=== PATIENT | male | born 1990 | race Hispanic/Latino ===

== ENCOUNTER 2018-07-23 16:27 | Observation (INO) | payer BC ==
[2018-07-23] MEDS ORDERED: Morphine 4 MG/ML VIAL IV STA (16:53)
[2018-07-23] MEDS ORDERED: Morphine 4 MG/ML VIAL ONE (16:54)
--- NOTE | 2018-07-23 17:47 | ED PDOC ---
Upper Extremity Pain/Injury Time Seen by Provider: 07/23/18 16:49 Chief Complaint (Nursing): Finger,Hand,&Wrist Chief Complaint (Provider): left hand pain History Per: Patient History/Exam Limitations: no limitations Onset/Duration Of Symptoms: Sudden Onset Current Symptoms Are (Timing): Still Present Quality: Sharp Severity: Severe Exacerbating Factor(s): Strenuous Use Of Affected Area, Movement Additional Complaint(s): 28yo male c/o left hand pain s/p punching door, notes pain to lateral hand and 3 /4/5 digits, unable to actively move them. Denies elbow, wrist or shoulder pain. Denies head or neck trauma. Notes some tingling to the 4/5 digits. Past Medical History Reviewed: Historical Data, Nursing Documentation, Vital Signs Vital Signs: Last Vital Signs Temp 98.1 F 07/23/18 16:45 Pulse 94 H 07/23/18 16:45 Resp 18 07/23/18 16:45 BP 136/93 H 07/23/18 16:45 Pulse Ox 99 07/23/18 16:45 - Medical History PMH: No Chronic Diseases - Surgical History Surgical History: Appendectomy - Family History Family History: States: Unknown Family Hx - Living Arrangements Living Arrangements: With Family - Home Medications Home Medications: Ambulatory Orders Medication Instructions Recorded No Known Home Med 07/23/18 - Allergies Allergies/Adverse Reactions: Allergies Allergy/AdvReac Type Severity Reaction Status Date / Time No Known Allergies Allergy Verified 07/23/18 16:45 Review of Systems ROS Statement: Except As Marked, All Systems Reviewed And Found Negative Constitutional: Negative for: Fever Cardiovascular: Negative for: Chest Pain Respiratory: Negative for: Shortness of Breath Gastrointestinal: Negative for: Abdominal Pain Musculoskeletal: Positive for: Arm Pain, Hand Pain. Negative for: Neck Pain, Shoulder Pain, Back Pain, Leg Pain, Foot Pain Skin: Negative for: Rash, Lesions, Jaundice Neurological: Positive for: Numbness. Negative for: Weakness Physical Exam - Reviewed Nursing Documentation Reviewed: Yes Vital Signs Reviewed: Yes - Physical Exam Appears: Positive for: Uncomfortable (painful distress) Skin: Positive for: Normal Color, Warm Eye Exam: Positive for: Normal appearance, EOMI, PERRL Neck: Positive for: Painless ROM Respiratory: Negative for: Respiratory Distress Extremity: Positive for: Tenderness, Swelling, Other (L hand +tender ulnar side w/ edema, tenderness and loss ROM 3/4 digits, ring to L ring finger w dried blood underneath) - Laboratory Results Result Diagrams: 07/23/18 18:01 07/23/18 18:01 - ECG O2 Sat by Pulse Oximetry: 99 Medical Decision Making Medical Decision Making: pain medicine initiated xrays reveal comminuted displaced distal 3/4 metacarpal fractures. Hand surgery contacted, will come to ED to reduce and possible OR Last PO at 3pm Remain NPO Dr Coffman in ED approx 630pm, he provided digital block and reduced fractures and placed in splint. I assisted with removing ring with ring cutter. Per hand surgery no need for post reduction XRays and fractures are unstable and will require OR in am. Patient remains in pain, admit med surg Obs for pain control, neurovascular checks and OR in am Disposition - Clinical Impression Clinical Impression: Multiple hand fractures - Patient ED Disposition Is Patient to be Admitted: Yes - Disposition Disposition Time: 18:30 Condition: STABLE - POA Present On Arrival: Falls Or Trauma
[2018-07-23 18:04] LABS: BASO % 0.8 % (0.0-2.0); EOS # 0.1 K/uL (0.0-0.7); EOS % 2.1 % (0.0-4.0); HEMOGLOBIN 15.1 g/dL (12.0-18.0); LYMPH # 1.2 K/uL (1.0-4.3); LYMPH % 26.9 % (20.0-40.0); MEAN CELL VOLUME 86.1 fl (80.0-94.0); MEAN CORPUSCULAR HEMOGLOBIN 28.5 pg (27.0-31.0); MEAN CORPUSCULAR HGB CONC 33.2 g/dL (33.0-37.0); MEAN PLATELET VOLUME 8.7 fl (7.2-11.7); MONO # 0.5 K/uL (0.0-0.8); MONO % 10.6 % (0.0-10.0); NEUT # 2.7 K/uL (1.8-7.0); NEUT % 59.6 % (50.0-75.0); NRBC % 0.1 % (0.0-0.0); RBC 5.28 Mil/uL (4.40-5.90); RED CELL DISTRIBUTION WIDTH 13.7 % (11.5-14.5); WHITE BLOOD COUNT 4.6 K/uL (4.8-10.8)
[2018-07-23 18:12] LABS: ALB/GLOB RATIO 1.6 (1.0-2.1); ALBUMIN 4.7 g/dL (3.5-5.0); ALT/SGPT 42 U/L (21-72); AST/SGOT 36 U/L (17-59); BLOOD UREA NITROGEN 15 mg/dl (9-20); CALCIUM 9.8 mg/dL (8.4-10.2); GFR NON-AFRICAN AMERICAN > 60; INR 1.1
[2018-07-23 18:14] LABS: PARTIAL THROMBOPLASTIN TIME 28.3 Seconds (25.6-37.1)
[2018-07-23] MEDS ORDERED: Lidocaine 2% Inj (20ml) IJ ONE (19:02)
[2018-07-23] MEDS ORDERED: Lidocaine PF 2% (5 ml) Inj (For Cardiac Arrhy) ONE (19:04)
--- NOTE | 2018-07-23 20:05 | CP.PCM.HP ---
History of Present Illness - History of Present Illness History of Present Illness: Hand Surgery - Dr. Coffman 28yo M presenting with L hand pain s/p punching wooden door. Pt states that he punched a door and immediately noted severe pain and deformity to his Left hand , mostly in the lateral hand and 4/5 digits. He was unable to move them actively and notes some numbness/paresthesias to the 4/5 digits. Pt denies any other injuries. He denied any wrist, elbow or shoulder pain. PMH: denies any PSH: Lap appendectomy, Right hand repair s/p dog bite NKDA Soc: Smokes Marijuana, Quit smoking cigarettes 3 days ago, Social ETOH Pt was seen in the ED. S/P reduction and splint by Dr. Coffman. Will be admitted and plan for OR tomorrow for closed and possible open reduction and pinning of the Left 4/5 metacarpals. Present on Admission - Present on Admission Any Indicators Present on Admission: No Review of Systems - Review of Systems All systems: reviewed and no additional remarkable complaints except (as per HPI ) Past Patient History - Past Social History Smoking Status: Former Smoker Alcohol: Social Drugs: Cannabis - PSYCHIATRIC Hx Substance Use: No - SURGICAL HISTORY Hx Appendectomy: Yes Meds Allergies/Adverse Reactions: Allergies Allergy/AdvReac Type Severity Reaction Status Date / Time No Known Allergies Allergy Verified 07/23/18 16:45 Physical Exam - Constitutional Appears: No Acute Distress - Head Exam Head Exam: ATRAUMATIC, NORMAL INSPECTION, NORMOCEPHALIC - Eye Exam Eye Exam: Normal appearance - ENT Exam ENT Exam: Mucous Membranes Moist - Respiratory Exam Respiratory Exam: NORMAL BREATHING PATTERN. absent: Respiratory Distress - Cardiovascular Exam Cardiovascular Exam: REGULAR RHYTHM - Extremities Exam Additional comments: Left hand in full splint - Neurological Exam Neurological exam: Alert, Oriented x3 - Psychiatric Exam Psychiatric exam: Normal Affect, Normal Mood - Skin Skin Exam: Dry, Intact Results - Vital Signs Recent Vital Signs: Last Vital Signs Temp 98.1 F 07/23/18 16:45 Pulse 94 H 07/23/18 16:45 Resp 18 07/23/18 16:45 BP 136/93 H 07/23/18 16:45 Pulse Ox 99 07/23/18 19:50 - Labs Result Diagrams: 07/23/18 18:01 07/23/18 18:01 Labs: Laboratory Results - last 24 hr 07/23/18 07/23/18 07/23/18 18:01 18:01 18:01 WBC 4.6 L RBC 5.28 Hgb 15.1 Hct 45.4 MCV 86.1 MCH 28.5 MCHC 33.2 RDW 13.7 Plt Count 192 MPV 8.7 Neut % (Auto) 59.6 Lymph % (Auto) 26.9 [place] % (Auto) 10.6 H Eos % (Auto) 2.1 Baso % (Auto) 0.8 Neut # (Auto) 2.7 Lymph # (Auto) 1.2 [place] # (Auto) 0.5 Eos # (Auto) 0.1 Baso # (Auto) 0.0 PT 12.0 INR 1.1 APTT 28.3 Sodium 141 Potassium 3.9 Chloride 106 Carbon Dioxide 23 Anion Gap 16 BUN 15 Creatinine 1.0 Est GFR ( Amer) > 60 Est GFR (Non-Af Amer) > 60 Random Glucose 98 Calcium 9.8 Total Bilirubin 0.7 AST 36 ALT 42 Alkaline Phosphatase 49 Total Protein 7.7 Albumin 4.7 Globulin 2.9 Albumin/Globulin Ratio 1.6 Assessment & Plan - Assessment and Plan (Free Text) Assessment: 28yo M w/ Open, comminuted displaced fxs of Left 4th/5th Metacarpals -Admitted under Dr. Coffman -NPO after midnight -IVF -Pain control prn -Plan for OR tomorrow (07/24) DW Dr. Augustus Herrera PGY4
[2018-07-23] MEDS: Lactated Ringer's 1,000 ML IV SCH (20:14)
[2018-07-24] MEDS: Lactated Ringer's 1,000 ML IV SCH ×3 (03:34→14:45)
--- NOTE | 2018-07-24 08:25 | RAD ---
Date of service: 07/23/2018 PROCEDURE: Left Wrist Radiographs. HISTORY: hand wrist trauma punched door COMPARISON: None. FINDINGS: BONES: No acute fracture or destructive bony lesion identified, including the navicular bone. JOINTS: Normal. No dislocation. SOFT TISSUES: Normal. OTHER FINDINGS: None. IMPRESSION: Unremarkable left wrist radiographs.
--- NOTE | 2018-07-24 08:33 | RAD ---
PROCEDURE: Left Hand Radiographs. HISTORY: punched wall COMPARISON: None. FINDINGS: BONES: Patchy comminuted fractures of distal 4th and 5th metacarpal diaphyses are identified with volar angulation of the major fracture fragments. No dislocation apparent. A ring at the proximal phalanx level of the left ring finger obscures evaluation of the ring finger with the remaining digits unremarkable in appearance as well as the 1st through 3rd metacarpal bones. Local soft tissues reflect edema at the fracture sites of the 4th and 5th metacarpal bones. JOINTS: As above. SOFT TISSUES: As above. OTHER FINDINGS: None. IMPRESSION: Right 4th and 5th metacarpal bone boxer's fractures as discussed above. No dislocation.
[2018-07-24] MEDS ORDERED: Pneumococcal 23-Valent Vaccine IM ONE (10:00)
[2018-07-24] MEDS ORDERED: ceFAZolin IV 1 gm in Dextrose 1 GM/50 ML BAG IVPB ONE ×2 (13:17→14:13)
[2018-07-24] MEDS ORDERED: Propofol 10 mg/ml Inj (20 ML) ONE (13:47)
[2018-07-24] MEDS ORDERED: Phenylephrine 10 mg/ml Inj ONE (14:14)
[2018-07-24] MEDS ORDERED: Bupivacaine 0.5% Inj(30mL) IJ ONE (14:30)
--- NOTE | 2018-07-24 14:46 | PCM.SURG1 ---
Surgeon's Initial Post Op Note - Surgeon's Notes Surgeon: Dr. Irasema Coffman General Car Yard Supervisor: Sophia Lynch, PGY-2 Type of Anesthesia: General LMA Anesthesia Administered By: Dr. Sainz Pre-Operative Diagnosis: Communited fracture of 4th and 5th metacarpals of left hand Operative Findings: See op report Post-Operative Diagnosis: Communited fracture of 4th and 5th metacarpals of left hand Operation Performed: Closed reduction of Communited fracture of 4th and 5th metacarpals of left hand with pin placement Specimen/Specimens Removed: None Estimated Blood Loss: EBL {In ML}: 2 Blood Products Given: N/A Drains Used: No Drains Post-Op Condition: Good Date of Surgery/Procedure: 07/24/18 Time of Surgery/Procedure: 14:46
--- NOTE | 2018-07-24 14:51 | CP.PCM.PN ---
Subjective - Date & Time of Evaluation Date of Evaluation: 07/24/18 Time of Evaluation: 14:49 - Subjective Subjective: Plastic surgery progress note for Dr. Coffman-Sophia Lynch, PGY-2 Pt admitted to plastic surgery service yesterday after 4th and 5th metacarpals communited fracture of left hand was identified. Pt taken to OR, s/p closed reduction of 4th and 5th metacarpals of left hand, doing well post op. Pt cleared to d/c home later today after recovering from anesthesia as per Dr. Coffman. Scripts called into pharmacy to be picked up by patient. Ok to resume normal diet. Objective - Vital Signs/Intake and Output Vital Signs (last 24 hours): Temp Pulse Resp BP Pulse Ox 97.5 F L 62 19 118/75 97 07/24/18 09:00 07/24/18 09:00 07/24/18 09:00 07/24/18 09:00 07/24/18 09:00 - Medications Medications: Current Medications Hydromorphone HCl (Dilaudid) 0.5 mg IVP Q3 PRN PRN Reason: breakthrough pain Stop: 07/26/18 11:23 Last Admin: 07/24/18 11:44 Dose: 0.5 mg Hydromorphone HCl (Dilaudid) 1 mg IVP Q3H PRN PRN Reason: Pain, severe (8-10) Last Admin: 07/24/18 13:12 Dose: 1 mg Lactated Ringer's (Lactated Ringer's) 1,000 mls @ 125 mls/hr IV .Q8H JACQUELIN Last Admin: 07/24/18 11:44 Dose: 125 mls/hr Tramadol HCl (Ultram) 50 mg PO Q6 PRN PRN Reason: Pain, moderate (4-7) - Labs Labs: 07/23/18 18:01 07/23/18 18:01 PT 12.0 Seconds (9.8-13.1) 07/23/18 18:01 INR 1.1 07/23/18 18:01 APTT 28.3 Seconds (25.6-37.1) 07/23/18 18:01 - Constitutional Appears: Non-toxic, No Acute Distress - Head Exam Head Exam: ATRAUMATIC, NORMAL INSPECTION, NORMOCEPHALIC - Eye Exam Eye Exam: EOMI, Normal appearance - ENT Exam ENT Exam: Mucous Membranes Moist, Normal Exam - Neck Exam Neck Exam: Full ROM, Normal Inspection - Respiratory Exam Respiratory Exam: NORMAL BREATHING PATTERN - Cardiovascular Exam Cardiovascular Exam: REGULAR RHYTHM, +S1, +S2 - GI/Abdominal Exam GI & Abdominal Exam: Soft. absent: Tenderness - Extremities Exam Extremities Exam: absent: Normal Inspection Additional comments: left hand with cast in place- clean/dry/intact - Psychiatric Exam Psychiatric exam: Normal Affect, Normal Mood - Skin Skin Exam: Dry, Intact, Normal Color, Warm
[2018-07-24 16:13] VITALS: O2SAT 98
[2018-07-24 16:39] VITALS: BP 116/67; PULSE 71; RESP 20; TEMP 97.9
--- NOTE | 2018-07-27 02:45 | CON ---
Copied To: Irasema Coffman MD Attending MD: Irasema Coffman MD DATE: 07/23/2018 ER CONSULTATION. SURGEON: Irasema Coffman MD HISTORY OF PRESENT ILLNESS: This is a 28-year-old male with the past surgical history of a dislocated right thumb, that required operative reduction, who is right hand dominant, who punched the door, and he presented to the emergency room with the deformity of his left hand. X-ray done by the ER staff showed left fourth or ring finger metacarpal head, intraarticular comminuted fracture, as well as a left small finger angulated displaced metacarpal neck fracture that was about 90 degrees displaced and ER staff consulted me for these acute fractures. I came in as the hand surgeon environmental web crawler. PHYSICAL EXAMINATION: GENERAL: The patient had tenderness and swelling of the left ring and small finger at the MCP joint. There is an obvious deformity of the hand. He had some scissoring and angulation with fist making. The phalanx bones in all fingers and other metacarpal bones and the carpal bones of the wrist and the distal radius were not tender. I reviewed the x-ray which showed a comminuted intraarticular fracture of the left fourth metacarpal head and a displaced left small finger metacarpal neck fracture at 90 degrees displaced. He was neurovascularly intact, except for some paresthesia secondary to swelling and good cap refill. I told the patient because he has acute dislocations, I would give him a hematoma block and perform a closed reduction, but warned the patient that this is an inherently unstable fracture and if there was moving at the end of the closed reduction, he would need to go to the operating room for pin stabilization. He understood this and wished to proceed. I will now dictate a separate operative report. Irasema Coffman MD
--- NOTE | 2018-07-27 02:57 | OP ---
Copied To: Irasema Coffman MD Attending MD: Irasema Coffman MD PROCEDURE DATE: 07/23/2018 SURGEON: Irasema Coffman MD PREOPERATIVE DIAGNOSES: 1. Left ring finger metacarpal head intraarticular comminuted fracture. 2. Left small finger metacarpal neck displaced fracture. POSTOPERATIVE DIAGNOSES: 1. Left ring finger metacarpal head intraarticular comminuted fracture. 2. Left small finger metacarpal neck displaced fracture. PROCEDURE PERFORMED: As follows: 1. Closed reduction with manipulation of left ring finger metacarpal fracture. 2. Closed reduction with manipulation of left small finger metacarpal fracture. 3. Removal of foreign body; a ring from left ring finger. ANESTHESIA: Hematoma block to left ring finger and left small finger as well as left ring finger radial and ulnar digital. nerve block. INDICATIONS FOR PROCEDURE: As follows: Please refer to my separately dictated ER consultation for history and physical. I also forgot to mention the patient had a ring on, which we could not get off. I told him we would have to cut it off to which he agreed after regional anesthesia. DESCRIPTION OF PROCEDURE: As follows: A 0.5% Marcaine mixed with 1% lidocaine was used on the left ring finger and small finger metacarpal, hematoma block in the fracture sites of the metacarpal head and neck of the ring and small fingers, as well as a radial and ulnar digital nerve block to the left ring finger. After allowing sufficient time for the anesthetic to take effect, we attempted to remove the patient's ring from his left ring finger without cutting it. We were unsuccessful, we then used a pin cutter for the emergency room doctor and I, and we were able to successfully remove it. I then performed a closed reduction with manipulation of the left ring and small finger metacarpal fracture by performing a Jahss maneuver to reduce the fractures by flexing the MCP joints and pulling on the fingers. After doing this, there was a palpable click; however, the bones were unstable, there was no longer any scissoring or fist making, so I fabricated, secured a volar splint with the left wrist extended to 20 degrees, MCP flexed to 60 degrees, IP at 0 degrees before the splint hardened. I explained to the patient and his that these are unstable fractures and he would benefit from going to the operating room for pin stabilization. Since the patient ate recently and it would be in the middle of the night, he was admitted to the hospital to go to the operating room the following day. Irasema Coffman MD
--- NOTE | 2018-07-27 03:08 | OP ---
Copied To: Irasema Coffman MD Attending MD: Irasema Coffman MD PROCEDURE DATE: 07/24/2018 SURGEON: Irasema Coffman MD OIL BOILER SURGEON: Sophia Lynch DO ANESTHESIOLOGIST: Kalin Sainz MD ANESTHESIA: General anesthesia with LMA as well as hematoma block to the left fourth and fifth metacarpal fractures. PREOPERATIVE DIAGNOSES: 1. Left ring finger metacarpal head fracture. 2. Left small finger metacarpal neck fracture. POSTOPERATIVE DIAGNOSES: 1. Left ring finger metacarpal head fracture. 2. Left small finger metacarpal neck fracture. PROCEDURE PERFORMED: As follows: 1. Closed reduction with manipulation and percutaneous pinning of the left ring finger metacarpal fracture. 2. Closed reduction with manipulation and percutaneous pinning of the left small finger metacarpal neck fracture. INDICATIONS FOR PROCEDURES: As follows: This is a 28-year-old male who I performed a closed reduction in the emergency room last night after he punched a wall and he sustained deformity and fractures of the left fourth and fifth metacarpal fractures. The fractures were unstable. After reduction, the patient stayed overnight. Since he ate recently, he is going to the operating room today. I explained to the patient the possible risk of the operation including but not limited to infection, arthritis, nonunion, malunion, stiffness, need to keep the splint on for a month, the need for therapy, and possible need for subsequent surgery and stiffness. He understood this and wished to proceed. DESCRIPTION OF PROCEDURE: As follows: The patient was taken to the operating room, placed under general anesthesia with an LMA. Perioperative antibiotics were given. SCDs were placed on bilateral lower extremities. Left upper extremity was prepped and draped in usual clean and sterile manner. With the use of mini C-arm and mini fluoroscopy, I performed a closed reduction with manipulation of the left ring and small finger metacarpal fractures. After aligning the bones, I placed a 0.45 K-wire in a retrograde manner from the metacarpal head, crossing to the fracture site of the left small finger, going into the hamate bone. I placed the second pin parallel to this into the hamate bone. I did the same exact thing on the left ring finger from the metacarpal head into the capitate bone. After doing this on AP, oblique, lateral, and PA views, there was excellent alignment of both fractures and there was no scissoring or angulation or any shortening with fist making. There was normal cascade to the fingers. X-rays were taken. Pins were bent, shortened, and capped. Xeroform dry sterile dressing was placed. An 0.5% Marcaine was placed in hematoma block for postop analgesia. A volar splint was fabricated, secured into position and comfort. Once the splint hardened, the patient awakened from anesthesia, and was transferred to recovery room in stable condition. FINDINGS: As above. DRAINS: A 0.45 K-wire x2 left small finger; 0.45 K-wire x1 left ring finger. ESTIMATED BLOOD LOSS: Minimal. COMPLICATIONS: None. CONDITION: Stable. Irasema Coffman MD
== END 2018-07-24 17:30 | disposition home or self-care (01) ==
LOC: H.ER 16:27 → H.ERHOLD 19:28 → H.MEDSURG1 21:25
PROVIDERS: ADMIT Surgery; ATTEND Surgery
DX: S62.303A Unspecified fracture of third metacarpal bone, left hand, initial encounter for closed fracture (principal); S62.305A Unspecified fracture of fourth metacarpal bone, left hand, initial encounter for closed fracture; W22.09XA Striking against other stationary object, initial encounter; Y93.89 Activity, other specified; Y92.9 Unspecified place or not applicable; F12.90 Cannabis use, unspecified, uncomplicated; Z87.891 Personal history of nicotine dependence; Z90.49 Acquired absence of other specified parts of digestive tract; Z23 Encounter for immunization
CPT/HCPCS: 26615; 73110; 73130; 80053; 85025; 85610; 85730; 90732; 99284; G0009; G0378; J0690; J1170; J1885; J2001; J2270; J2370; J2704; J3010; J7030; J7120